=== PATIENT | male | born 1965 | race Caucasian/White ===

== ENCOUNTER → 2024-03-09 | Day surgery (SDC) | payer BC ==
[~2024-03-09] VITALS: Ht 172.7 cm; Wt 63.5 kg
[~2024-03-09] MED LIST: LIDOCAINE 2% 100MG/5ML SDV (FOR ANES.) As Ordered ONE; SERT50TA29 PO; propofoL 200 MG/20 ML VIAL As Ordered ONE
[2024-03-09 11:04] VITALS: TEMP 97.7
[2024-03-09 11:22] VITALS: BP 103/67; O2SAT 100
== END | disposition home or self-care (01) ==
LOC: M OPP 10:19
PROVIDERS: ATTEND Surgery
DX: Z12.11 Encounter for screening for malignant neoplasm of colon (principal); Z12.12 Encounter for screening for malignant neoplasm of rectum; K64.2 Third degree hemorrhoids; F41.9 Anxiety disorder, unspecified; Z79.899 Other long term (current) drug therapy; F17.290 Nicotine dependence, other tobacco product, uncomplicated; Z90.89 Acquired absence of other organs